=== PATIENT | female | born 1955 | race Caucasian/White ===

== ENCOUNTER 2017-01-22 18:29 | Emergency (ER) | payer OTHER ==
[~2017-01-22] VITALS: Ht 157.5 cm; Wt 62.2 kg
[2017-01-22 18:52] VITALS: Ht 157.5 cm; Wt 62.2 kg
--- NOTE | 2017-01-22 20:38 | ERD ---
ER Documentation Chief Complaint Date/Time DATE: 01/22/17 TIME: 20:35 Chief Complaint LEFT THUMB PAIN, REDNESS AND SWELLING X 5 DAYS. DENIES FEVERS HPI 61-year-old female presents here in emergency department for complaints of left thumb pain redness and swelling for the last 5 days, patient states that she saw a possible foreign body, splinter on the nailbed 3 weeks ago, but it didn't bother her, the last 5 days, the left eye became red and swollen, now the redness goes down to the wrist area. Patient described the pain as throbbing pain, is less than scale, is worse upon touching the area. Patient noticed some pustular discharge coming from the area. Patient denies any fever or chills. Patient did not take any medications of symptoms. Patient denies any numbness or tingling. Patient used a bunch of [id number] and natural remedies but it did not help the symptoms. ROS All systems reviewed and are negative except as per history of present illness. Medications Home Meds Reported Medications [none] Unknown Strength No Conflict Check 01/22/17 Allergies Allergies: Coded Allergies: No Known Allergy (Unverified , 01/22/17) PMhx/Soc Medical and Surgical Hx: pt denies Medical Hx History of Surgery: Yes (BLADDER SURGERY) Hx Alcohol Use: No Hx Substance Use: No Hx Tobacco Use: No Smoking Status: Never smoker FmHx Family History: No coronary disease, No diabetes, No other Physical Exam Vitals Vital Signs Date Time Temp Pulse Resp B/P Pulse Ox O2 Delivery O2 Flow Rate FiO2 01/22/17 18:52 98.3 86 20 133/72 97 Physical Exam GENERAL: The patient is well developed and appropriate for usual state of health, in no apparent distress. CHEST: Clear to auscultation bilaterally. There are no rales, wheezes or rhonchi. HEART: Regular rate and rhythm. No murmurs, clicks, rubs or gallops. No S3 or S4. ABDOMEN: Soft, nontender and nondistended. Good bowel sounds. No rebound or guarding. No gross peritonitis. No gross organomegaly or masses. No Crowder sign or McBurney point tenderness. BACK: No midline or flank tenderness. EXTREMITIES: Equal pulses bilaterally. There is no peripheral clubbing, cyanosis or edema. No focal swelling or erythema. Full range of motion. Grossly neurovascularly intact. NEURO: Alert and oriented. Cranial nerves 2-12 intact. Motor strength in all 4 extremities with 5/5 strength. Sensation grossly intact. Normal speech and gait. SKIN: Noted redness and swelling noted on the left thumb area surrounding the nail area and on the palmar aspect of the left thumb, tenderness on palpation, fluctuance noted. Noted redness streaking towards the left wrist area. There is no apparent ecchymosis or petechia. The skin is warm and dry. HEMATOLOGIC AND LYMPHATIC: There is no evidence of excessive bruising or lymphedema. No gross cervical, axillary, or inguinal lymphadenopathy. Results 24 hrs Laboratory Tests Test 01/22/17 20:42 Bedside Glucose 96mg/dL Current Medications Medications (Trade) Dose Ordered Sig/Dominique Route PRN Reason Start Time Stop Time Status Last Admin Dose Admin Diphtheria/ Tetanus/Acell Pertussis (Adacel) 0.5 ml ONCE ONCE IM* 01/22/17 21:00 01/22/17 21:01 DC 01/22/17 21:11 Lidocaine (Xylocaine 1% (Mdv) 20 ml) 2 ml ONCE ONCE SC 01/22/17 21:30 01/22/17 21:31 DC Ketorolac Tromethamine 30 mg 30 mg ONCE STAT IV 01/22/17 22:09 01/22/17 22:12 DC Clindamycin HCl/ Dextrose (Cleocin 600 Mg/ D5W (Pmx)) 50 ml @ 50 mls/hr ONCE IVPB 01/22/17 22:30 01/22/17 23:29 Tdap was given to prevent tetanus. Patient tolerated medication well. Dr. Anaya, my attending physician, evaluated this patient with me, he recommended to do a CT scan of the affected area to rule out foreign body and further evaluation, he recommended to the patient's tetanus immunization, check blood sugar, he recommended to do an incision and drainage once results are back. PROCEDURE: CT of the left first digit without contrast CLINICAL INDICATION: Left thumb pain and swelling TECHNIQUE: CT scan of the left first digit was performed on a [employer] 64-slice scanner. No IV contrast was administered. Coronal and sagittal reformatted images were obtained from the axial source images. The CTDI is 6.35 mGy and the total exam DLP equals 90.93 mGy-cm. Images were reviewed on a high- resolution PACS workstation. COMPARISON: None. FINDINGS: No acute fracture or dislocation is seen. Osseous structures are well mineralized. Mild to moderate joint space narrowing and osteophytosis in the first carpometacarpal joint is seen. The remaining joint spaces are preserved. Diffuse soft tissue swelling of the first digit is seen. No fluid collection or mass is seen. No radiopaque foreign body is identified. IMPRESSION: 1. Diffuse soft tissue swelling of the first digit. 2. Mild to moderate osteoarthritis of the first carpometacarpal joint. RPTAT: HPNM Physician Ashley Date Time Electronically viewed and signed by Ted Rascon Physician on 01/22/2017 21 :11 / CC: JACE PEARCE OUTREACH MANAGER Procedures/MDM Procedure Note: After obtaining informed consent, the wound was irrigated with 250 ml of normal saline and cleaned with diluted betadine. Using aseptic technique, 3 ml of 1% lidocaine was injected on the subcutaneous tissue of the abscess where the fluctuant area is at. After the anesthetic, a 2 cm incision was done in the middle of the fluctuant area of the abscess. Pustular discharge was drained from the abscess. The abscess wound was loosely packed with iodoform dressing. After the procedure, dry dressing was applied on the area. Patient tolerated procedure well. Medical Decision Making: Patient's pain is most likely consistent with a felon noted in the palmar aspect of the left thumb, this was drained. There is no suspicion for neurovascular compromise. Patient has intact sensation and circulation of the affected extremity. There is low suspicion for septic arthritis. Patient does not have any fever. Radiology exams of the affected area does not show any fracture or dislocation. No foreign body noted. IV clindamycin was given here in emergency department for initial treatment. Disposition: Home. Patient is given prescription for ibuprofen for pain and [place], clindamycin. Patient was advised to elevate the affected area and apply ice on affected area. Patient was advised that if symptoms are worse, numbness , tingling, high fever, unable to move joint, worsening symptoms, to return to emergency department immediately. Otherwise, patient is advised to follow up with here in emergency department for reevaluation of symptoms and changing of dressing. Departure Diagnosis: Primary Impression: Felon of finger Condition: Stable Patient Instructions: Abscess, Antiobiotic Treatment Only Additional Instructions: Patient is given prescription for ibuprofen for pain and [place], clindamycin. Patient was advised to elevate the affected area and apply ice on affected area. Patient was advised that if symptoms are worse, numbness, tingling, high fever, unable to move joint, worsening symptoms, to return to emergency department immediately. Otherwise, patient is advised to follow up with here in emergency department for reevaluation of symptoms and changing of dressing. JACE PEARCE NP Jan 22, 2017 20:38
[2017-01-22] MEDS ORDERED: DIPHTH/TET/ACEL PERTUSS (ADULT) 0.5 ML VIAL IM* ONE (21:00)
--- NOTE | 2017-01-22 21:11 | RADRPT ---
PROCEDURE: CT of the left first digit without contrast CLINICAL INDICATION: Left thumb pain and swelling TECHNIQUE: CT scan of the left first digit was performed on a [employer] 64-slice scanner. No IV contrast was administered. Coronal and sagittal reformatted images were obtained from the axial source images. The CTDI is 6.35 mGy and the total exam DLP equals 90.93 mGy-cm. Images were reviewe d on a high-resolution PACS workstation. COMPARISON: None. FINDINGS: No acute fracture or dislocation is seen. Osseous structures are well mineralized. Mild to moderat e joint space narrowing and osteophytosis in the first carpometacarpal joint is seen. The remaining joint spaces are preserved. Diffuse soft tissue swelling of the first digit is seen. No fluid eduardo ection or mass is seen. No radiopaque foreign body is identified. IMPRESSION: 1. Diffuse soft tissue swelling of the first digit. 2. Mild to moderate osteoarthritis of the first carpometacarpal joint. RPTAT: HPNM Physician Ashley Date Time Electronically viewed and signed by Physician Ashley on 01/22/2017 21:11 /
[2017-01-22] MEDS ORDERED: LIDOCAINE 1% (MDV) 20 ML INJ SC ONE (21:30)
[2017-01-22] MEDS ORDERED: KETOROLAC 30 MG INJ IV STA (22:09)
[2017-01-22] MEDS ORDERED: HYDR-906 PO (22:26)
[2017-01-22] MEDS ORDERED: IBUP-1542 PO (22:26)
[2017-01-22] MEDS ORDERED: CLIN-73 PO (22:26)
[2017-01-22] MEDS ORDERED: CLINDAMYCIN 600 MG/D5W (PMX) 50 ML IVPB SCH (22:30)
[2017-01-23 00:08] VITALS: BP 117/73; PULSE 72; RESP 16; TEMP 98.2
== END 2017-01-23 00:39 | disposition home or self-care (01) ==
LOC: FTE 18:29
DX: L03.012 Cellulitis of left finger (principal); Z23 Encounter for immunization
CPT/HCPCS: 26011; 73200; 82962; 90471; 90715; 96374; 96375; J1885; Z7502; Z7610

== ENCOUNTER 2017-01-24 20:57 | Emergency (ER) | payer OTHER ==
[~2017-01-24] VITALS: Ht 157.5 cm; Wt 63.7 kg
[~2017-01-24 20:57] MED LIST: CLIN-73 PO; HYDR-906 PO; IBUP-1542 PO
[2017-01-24 21:00] VITALS: Ht 157.5 cm; Wt 63.7 kg
--- NOTE | 2017-01-25 03:32 | ERD ---
ER Documentation Chief Complaint Date/Time DATE: 01/25/17 TIME: 03:28 Chief Complaint wound check left hand HPI Patient is a 61-year-old female presents here in emergency department here for wound check of her left thumb incision and drainage 2 days ago. Patient denies fever or chills. She is taking her antibiotics. She denies any new symptoms. No other complaints. ROS All systems reviewed and are negative except as per history of present illness. Medications Home Meds Active Scripts Hydrocodone/Acetaminophen ([place] 5-325 Tablet) 1 Each Tablet, 1 TAB PO Q6H Y for SEVERE PAIN LEVEL 7-10, #20 TAB Prov:JACE PEARCE DYNAMO TENDER 01/22/17 Clindamycin Hcl* (Clindamycin Hcl*) 300 Mg Capsule, 300 MG PO TID for 10 Days, CAP Prov:JACE PEARCE NP 01/22/17 Ibuprofen* (Motrin*) 600 Mg Tab, 600 MG PO Q6H Y for PAIN AND OR ELEVATED TEMP, #30 TAB Prov:JACE PEARCE NP 01/22/17 Reported Medications [none] Unknown Strength No Conflict Check 01/22/17 Allergies Allergies: Coded Allergies: No Known Allergy (Unverified , 01/22/17) PMhx/Soc History of Surgery: Yes (BLADDER SURGERY) Anesthesia Reaction: No Hx Neurological Disorder: No Hx Respiratory Disorders: No Hx Cardiac Disorders: No Hx Psychiatric Problems: No Hx Miscellaneous Medical Probl: No Hx Alcohol Use: No Hx Substance Use: No Hx Tobacco Use: No Smoking Status: Never smoker Physical Exam Vitals Vital Signs Date Time Temp Pulse Resp B/P Pulse Ox O2 Delivery O2 Flow Rate FiO2 01/24/17 21:00 98.3 88 20 133/65 100 Physical Exam GENERAL: Well-developed, well-nourished female. Appears in no acute distress. LUNG: Clear to auscultation bilaterally. No rhonchi, wheezing, rales or coarse breath sounds. HEART: Regular rate and rhythm. No murmurs, rubs or gallops. Extremities: Equal pulses bilaterally. No peripheral clubbing, cyanosis or edema. No unilateral leg swelling. Left thumb has packing in place. mild redness and swelling. no drainage, bleeding. no streaking NEUROLOGIC: Alert and oriented. Moving all four extremities. 5/5 strength in all extremities. Normal speech. Steady gait. SKIN: Normal color. Warm and dry. No rashes or lesions. Capillary refill < 2 seconds Procedures/MDM ER COURSE: I kept the patient and/or family informed of laboratory and diagnostic imaging results throughout the emergency room course. PROCEDURES Wound was cleaned and packing was removed. No bleeding or drainage. No fluctuance or induration. No complications. MEDICAL DECISION MAKING: This is a 61-year-old female who presents with some wound recheck. Vital signs were reviewed. Patient is afebrile. Patient is not hypoxic. Patient is not toxic or ill-appearing. Patient has a healing wound on her left thumb. Low suspicion for necrotizing fasciitis, SJS, toxic epidermal necrolysis, Kawasaki, erythema multiforme, gangrene, scarlet fever, meningococcemia, sepsis, anaphylaxis, sepsis, deep space infection, or foreign body. DISCHARGE: At this time, patient is stable for discharge and outpatient management with no new complaints during the ER course. Patient was sent home with instructions to return to the ED in 2 days for wound recheck.. Patient will be discharged home with instructions to recheck for new or worsening symptoms such as fever, nausea , weakness, LOC and to follow up with primary care in the next 1-2 days. Patient was advised to return to the ER for any new or worsening symptoms. Plan was discussed and patient and/or family understands and agrees. Home instructions were given. Departure Diagnosis: Primary Impression: Encounter for wound re-check Condition: Stable Patient Instructions: Wound Care Referrals: BANDAR ABURTO (PCP) Additional Instructions: return in 2 days for wound recheck. continue taking antibiotics that you were prescribed. Call your primary care doctor TOMORROW for an appointment during the next 1-2 days.See the doctor sooner or return here if your condition worsens before your appointment time. OSEI HUDDLESTON PA-C Jan 25, 2017 03:32
[2017-01-25 03:34] VITALS: BP 120/70; PULSE 78; RESP 18; TEMP 98
== END 2017-01-25 03:37 | disposition home or self-care (01) ==
LOC: FTE 20:57
DX: Z48.01 Encounter for change or removal of surgical wound dressing (principal)
CPT/HCPCS: 99281

== ENCOUNTER 2017-01-28 11:41 | Emergency (ER) | payer OTHER ==
[~2017-01-28] VITALS: Ht 160 cm; Wt 62.0 kg
[2017-01-28 11:42] VITALS: Ht 160 cm; Wt 62.0 kg
[2017-01-28] MEDS ORDERED: DOXY100T20 PO (13:14)
--- NOTE | 2017-01-28 13:22 | ERD ---
ER Documentation Chief Complaint Date/Time DATE: 01/28/17 TIME: 13:17 Chief Complaint PT HERE FOR WOUND CHECK ON LT THUMB HPI This is a 61-year-old female presents the emergency department today for wound check on her left thumb. Patient has been seen here 2 times previously. States she is a little disappointed as she thought that it would be healed more at this point. States she is taking her antibiotics as prescribed. Denies any fevers or chills or significant pain. ROS All systems reviewed and are negative except as per history of present illness. Medications Home Meds Active Scripts Doxycycline Hyclate* (Doxycycline Hyclate*) 100 Mg Tablet.dr, 100 MG PO BID for 7 Days, TAB Prov:ODELL MONSALVE PA-C 01/28/17 Hydrocodone/Acetaminophen ([place] 5-325 Tablet) 1 Each Tablet, 1 TAB PO Q6H Y for SEVERE PAIN LEVEL 7-10, #20 TAB Prov:JACE PEARCE DOCTOR OSTEOPATHIC 01/22/17 Clindamycin Hcl* (Clindamycin Hcl*) 300 Mg Capsule, 300 MG PO TID for 10 Days, CAP Prov:JACE PEARCE DOCTOR OSTEOPATHIC 01/22/17 Ibuprofen* (Motrin*) 600 Mg Tab, 600 MG PO Q6H Y for PAIN AND OR ELEVATED TEMP, #30 TAB Prov:JACE PEARCE DOCTOR OSTEOPATHIC 01/22/17 Reported Medications [none] Unknown Strength No Conflict Check 01/22/17 Allergies Allergies: Coded Allergies: No Known Allergy (Unverified , 01/22/17) PMhx/Soc History of Surgery: Yes (BLADDER SURGERY) Anesthesia Reaction: No Hx Neurological Disorder: No Hx Respiratory Disorders: No Hx Cardiac Disorders: No Hx Psychiatric Problems: No Hx Miscellaneous Medical Probl: No Hx Alcohol Use: No Hx Substance Use: No Hx Tobacco Use: No Physical Exam Vitals Vital Signs Date Time Temp Pulse Resp B/P Pulse Ox O2 Delivery O2 Flow Rate FiO2 01/28/17 11:42 98.2 71 16 99/59 99 Physical Exam Const: Pleasant, no acute distress Head: Atraumatic Eyes: Normal Conjunctiva ENT: Normal External Ears, Nose and Mouth. Neck: Full range of motion..~ No meningismus. Resp: Clear to auscultation bilaterally Cardio: Regular rate and rhythm, no murmurs Skin: No petechiae or rashes. Mild localized erythema around left thumb DIP no purulent drainage. Back: No midline or flank tenderness MSk: Left thumb with mild localized erythema around DIP. No purulent drainage. No evidence of cellulitis. Evidence of wound opening. Neur: Awake and alert Psych: Normal Mood and Affect Procedures/MDM 61-year-old female presents to the emergency department today for a wound check of her left thumb. Patient was initially seen here in January 22, 2017 for left thumb pain redness and swelling that had persisted for 5 days at that time. Patient thought that she had seen a foreign body possibly a splinter on the nailbed 3 weeks prior to that. Patient was evaluated here on the and a CT scan was actually done at that time that showed diffuse soft tissue swelling of the first digit and mild to moderate osteoarthritis of the first carpometacarpal joint. There is no significant abscess formed however there was an area that was incised around the fluctuant area and there was pustular discharge drained from the abscess. The abscess was loosely packed with iodoform at that time. Patient was also given IV clindamycin and discharged home on clindamycin. Patient returned on January 25 for a recheck of her wound again was removed Patient returns today again for evaluation. On physical exam there is some localized erythema however patient was really nontender to palpation and there is no fluctuance. There is evidence where the area had been opened up. Patient was instructed to continue on her clindamycin. Dr. Winston has seen and evaluated the patient and recommended that the patient do warm water soaks and also be placed on doxycycline for a week. Patient was instructed not to use alcohol or hydrogen peroxide. Patient understood. She was instructed to return back to the emergency department again for wound check in the next 4-5 days. Patient is afebrile and otherwise well-appearing have low suspicion for sepsis, deep space infection or tracking infection. At this time the patient is stable for discharge and outpatient management. Patient should follow up with their PCP in the next 1-2 days. They may return to the emergency department sooner for any persistent or worsening of symptoms. Patient understood and agreed with the plan. Departure Diagnosis: Primary Impression: Encounter for wound re-check Condition: Fair Patient Instructions: Wound Care Referrals: BANDAR ABURTO (PCP) Additional Instructions: Call your primary care doctor TOMORROW for an appointment during the next 1-2 days.See the doctor sooner or return here if your condition worsens before your appointment time. Continue taking your clindamycin Take new prescription for doxycycline as well Warm water soaks Return for wound check in 4-5 days ODELL MONSALVE PA-C Jan 28, 2017 13:22
== END 2017-01-28 13:20 | disposition home or self-care (01) ==
LOC: FTE 11:41
DX: Z48.01 Encounter for change or removal of surgical wound dressing (principal); L53.9 Erythematous condition, unspecified
CPT/HCPCS: 99283

== ENCOUNTER 2017-01-31 20:02 | Emergency (ER) | payer OTHER ==
[~2017-01-31] VITALS: Ht 157.5 cm; Wt 62.5 kg
[~2017-01-31 20:02] MED LIST changes: +DOXY100T20 PO
[2017-01-31 20:29] VITALS: Ht 157.5 cm; Wt 62.5 kg
--- NOTE | 2017-01-31 21:09 | ERD ---
ER Documentation Chief Complaint Date/Time DATE: 01/31/17 TIME: 21:06 Chief Complaint wound check HPI 61-year-old female presents in emergency department for a wound check. Patient had a felon that was drained, patient is currently on antibiotics, was seen here 4 days ago, was given another course of antibiotics, clearly patient is taking it. Patient denies any new pain, patient denies any reinjury. Patient denies any fever or chills. Denies any numbness or tingling. Patient denies any deformity. ROS All systems reviewed and are negative except as per history of present illness. Medications Home Meds Active Scripts Doxycycline Hyclate* (Doxycycline Hyclate*) 100 Mg Tablet.dr, 100 MG PO BID for 7 Days, TAB Prov:ODELL MONSALVE PA-C 01/28/17 Hydrocodone/Acetaminophen ([place] 5-325 Tablet) 1 Each Tablet, 1 TAB PO Q6H Y for SEVERE PAIN LEVEL 7-10, #20 TAB Prov:JACE PEARCE NP 01/22/17 Clindamycin Hcl* (Clindamycin Hcl*) 300 Mg Capsule, 300 MG PO TID for 10 Days, CAP Prov:JACE PEARCE APARTMENT MAINTENANCE TECHNICIAN 01/22/17 Ibuprofen* (Motrin*) 600 Mg Tab, 600 MG PO Q6H Y for PAIN AND OR ELEVATED TEMP, #30 TAB Prov:JACE PEARCE NP 01/22/17 Reported Medications [none] Unknown Strength No Conflict Check 01/22/17 Allergies Allergies: Coded Allergies: No Known Allergy (Unverified , 01/22/17) PMhx/Soc History of Surgery: Yes (BLADDER SURGERY) Anesthesia Reaction: No Hx Neurological Disorder: No Hx Respiratory Disorders: No Hx Cardiac Disorders: No Hx Psychiatric Problems: No Hx Miscellaneous Medical Probl: No Hx Alcohol Use: No Hx Substance Use: No Hx Tobacco Use: No FmHx Family History: No coronary disease, No diabetes, No other Physical Exam Vitals Vital Signs Date Time Temp Pulse Resp B/P Pulse Ox O2 Delivery O2 Flow Rate FiO2 01/31/17 20:29 98.6 72 18 118/72 98 Physical Exam GENERAL: The patient is well developed and appropriate for usual state of health, in no apparent distress. CHEST: Clear to auscultation bilaterally. There are no rales, wheezes or rhonchi. HEART: Regular rate and rhythm. No murmurs, clicks, rubs or gallops. No S3 or S4. ABDOMEN: Soft, nontender and nondistended. Good bowel sounds. No rebound or guarding. No gross peritonitis. No gross organomegaly or masses. No Crowder sign or McBurney point tenderness. BACK: No midline or flank tenderness. EXTREMITIES: Equal pulses bilaterally. There is no peripheral clubbing, cyanosis or edema. No focal swelling or erythema. Full range of motion. Grossly neurovascularly intact. NEURO: Alert and oriented. Cranial nerves 2-12 intact. Motor strength in all 4 extremities with 5/5 strength. Sensation grossly intact. Normal speech and gait. SKIN: Left thumb wound healing well, no erythema, no fluctuance, mild swelling noted. There is no apparent rash or petechia. The skin is warm and dry. HEMATOLOGIC AND LYMPHATIC: There is no evidence of excessive bruising or lymphedema. No gross cervical, axillary, or inguinal lymphadenopathy. Procedures/MDM Medical decision making: Patient's wound is healing well, no symptoms of any abscess at this time, advised to continue taking antibiotics as prescribed. No symptoms of neurovascular compromise. Patient was advised to move the left thumb so that to prevent atrophy, or see physical therapy. Patient was advised to return to emergency department for any worsening symptoms. Follow-up with primary care doctor in 3-4 days for reevaluation of symptoms Departure Diagnosis: Primary Impression: Encounter for wound re-check Condition: Stable Patient Instructions: Wound Care Additional Instructions: move thumb range of motion regularly, physical therapy if necessary, ffup w/ pmd , continue antibiotics given JACE PEARCE NP Jan 31, 2017 21:08
== END 2017-01-31 21:06 | disposition home or self-care (01) ==
LOC: FTE 20:02 → E/R 21:06
DX: Z48.01 Encounter for change or removal of surgical wound dressing (principal)
CPT/HCPCS: 99281